=== PATIENT | male | born 1970 | race Caucasian/White ===

== ENCOUNTER 2020-02-03 09:21 | Emergency (ER) | payer BC ==
[~2020-02-03] VITALS: Ht 175.3 cm; Wt 81.7 kg
[2020-02-03 09:35] VITALS: BP 131/75
[2020-02-03] MEDS ORDERED: CRESTOR5 MG PO (09:36)
[2020-02-03] MEDS ORDERED: FLUOXETINE DR90 MG PO (09:37)
[2020-02-03] MEDS ORDERED: TESTOSTERO30 MG/1.5 IM (09:37)
[2020-02-03] MEDS ORDERED: FLOMAX0.4 MG PO (09:37)
[2020-02-03] MEDS ORDERED: BACTRIM DS TAB1 EAC1 PO (09:46)
== END 2020-02-03 10:21 | disposition home or self-care (01) ==
LOC: M.ERS 09:21
DX: L03.116 Cellulitis of left lower limb (principal); E78.00 Pure hypercholesterolemia, unspecified